=== PATIENT | male | born 1955 | race Caucasian/White ===

== ENCOUNTER 2020-10-15 15:28 | Inpatient (IN) ==
[2020-10-15 16:17] LABS: Basophils % 0.6 % (0.0-0.8); Eosinophils # 0.2 10*3/uL (0.0-0.87); Eosinophils % 3.7 % (0.00-10.9); Hematocrit 40.2 VOL% (42.0-52.0); Hemoglobin 14.1 GM/DL (14.0-18.0); Immature Granulocytes % 0.5 %; Immature Granulocytes Absolute 0.03 #; Lymphocytes # 1.3 10*3/uL (1.4-4.0); Lymphocytes % 19.4 % (21.2-54.2); Mean Corpuscular HGB Conc 35.1 GM/DL (32-36); Mean Corpuscular Volume 89.9 FL (87-102); Mean Platelet Volume 8.9 FL (9.6-12.0); Monocytes % 12.2 % (1.7-12.7); Neutrophils % 63.6 % (38.7-73.9); Platelet Count 264 T/CUMM (130-400); Red Blood Count 4.47 MC/CUMM (3.8-5.5); Red Cell Distribution Width 12.1 % (9.3-17.3); White Blood Count 6.6 T/CUMM (4-12)
[2020-10-15 16:31] LABS: Alanine Aminotransferase 18 U/L (16-61); Albumin 1.4 G/DL (3.4-5.0); Alkaline Phosphatase 81 U/L (45-117); Aspartate Amino Transferase 23 U/L (0-37); Bilirubin,Total < 0.39 MG/DL (0.2-1.0); Blood Urea Nitrogen 23 MG/DL (7-18); Calcium 8.1 MG/DL (8.5-10.1); Carbon Dioxide 29 MMOL/L (21-32); Estimated Glom Filtration Rate 61 ML/MIN; Glucose 94 MG/DL (74-106); Osmolality,Calculated 282.4 MOS/KG (273-304); Sodium 140 MMOL/L (136-145); Total Protein 4.9 G/DL (5.0-7.5)
[2020-10-15 16:34] LABS: Bilirubin,Urine Negative (Negative); Blood, Urine Negative (Negative); Glucose,Urine (UA) 50 mg/dL (Negative); Hyaline Casts,Urine 10 /LPF (0-3); Ketones,Urine Negative (Negative); Mucus,Urine Occasional /LPF (Occasional); Nitrite,Urine Negative (Negative); Protein,Urine >=500 MG/DL; RBC,Urine 2 /HPF (0-4); Squamous Epithelial Cell,Urine Occasional /HPF (0-10); Urine Appearance CLEAR (Clear); Urine Color Yellow (Yellow); Urine Specific Gravity 1.012 (1.001-1.035); Urine Urobilinogen < 2.0 EU/DL (0.2-1.0); WBC,Urine 1 /HPF (0-6)
[2020-10-15] MEDS ORDERED: ENOXAPARIN 100 MG/ML SYRINGE SUBCUT ONE (18:09)
[2020-10-15] MEDS ORDERED: diphenhydrAMINE CAP 25 MG CAPSULE PO PRN (18:13)
[2020-10-15] MEDS ORDERED: ONDANSETRON 4 MG/2 ML VIAL IV PRN (18:13)
[2020-10-15] MEDS ORDERED: DEXTROSE 50% 25 GM/50 ML VIAL IV PRN (18:13)
[2020-10-15] MEDS ORDERED: GLUCAGON 1 MG VIAL IM PRN (18:13)
[2020-10-15] MEDS ORDERED: BISACODYL 5 MG TABLET PO PRN (18:13)
[2020-10-15] MEDS ORDERED: NICOTINE 21 MG/24 HR PATCH TRANSDERM PRN (18:13)
[2020-10-15] MEDS ORDERED: ZALEPLON 5 MG CAPSULE PO PRN (18:13)
[2020-10-15] MEDS ORDERED: guaiFENesin/DM ER 600-30 MG TABLET PO PRN (18:13)
[2020-10-15] MEDS ORDERED: ALUMINUM/MAGNES/SIMETH MAX STR 30 ML UDCUP PO PRN (18:13)
[2020-10-15] MEDS ORDERED: hydrALAZINE 20 MG/1 ML VIAL IV PRN (18:13)
[2020-10-15] MEDS ORDERED: ENOXAPARIN 30 MG/0.3 ML SYRINGE ONE (18:23)
[2020-10-15] MEDS ORDERED: ENOXAPARIN 120 MG/0.8 ML SYRINGE SUBCUT ONE (18:23)
[2020-10-15 18:34] LABS: ABG Base Excess 5.2 MMOL/L (-2.5-2.5); ABG HCO3 29.1 MMOL/L (20-26); ABG Oxygen Saturation 96.8 % (95-100); ABG PH 7.437 (7.35-7.45); ABG PO2 86.9 MM HG (80-95); ABG TCO2 25.5 MMOL/L (23-27)
[2020-10-15] MEDS: ALBUTEROL/IPRATROPIUM 3 ML NEB RESP TX SCH (19:11)
[2020-10-15] MEDS: PRAZOSIN 1 MG CAPSULE PO SCH (21:05)
[2020-10-15] MEDS: FUROSEMIDE 40 MG TABLET PO SCH (21:06)
[2020-10-15] MEDS: traZODone 50 MG TABLET PO SCH (21:06)
[2020-10-15] MEDS: ATORVASTATIN 10 MG TABLET PO SCH (21:06)
[2020-10-15] MEDS: METOPROLOL TARTRATE 25 MG TABLET PO SCH (21:06)
[2020-10-15] MEDS: GABAPENTIN 400 MG CAPSULE PO SCH (21:06)
[2020-10-16] MEDS: ALBUTEROL/IPRATROPIUM 3 ML NEB RESP TX SCH ×4 (02:15→20:20)
[2020-10-16] MEDS ORDERED: ENOXAPARIN 150 MG/ML SYRINGE SUBCUT SCH (06:00)
[2020-10-16 06:13] LABS: Basophils % 0.5 % (0.0-0.8); Eosinophils # 0.3 10*3/uL (0.0-0.87); Eosinophils % 4.6 % (0.00-10.9); Hematocrit 36.8 VOL% (42.0-52.0); Hemoglobin 12.9 GM/DL (14.0-18.0); Immature Granulocytes % 0.2 %; Immature Granulocytes Absolute 0.01 #; Lymphocytes % 16.9 % (21.2-54.2); Mean Corpuscular HGB Conc 35.1 GM/DL (32-36); Mean Corpuscular Volume 90.6 FL (87-102); Mean Platelet Volume 9.4 FL (9.6-12.0); Monocytes % 13.3 % (1.7-12.7); Neutrophils % 64.5 % (38.7-73.9); Platelet Count 256 T/CUMM (130-400); Red Blood Count 4.06 MC/CUMM (3.8-5.5); Red Cell Distribution Width 12.1 % (9.3-17.3); White Blood Count 5.9 T/CUMM (4-12)
[2020-10-16 06:33] LABS: Alanine Aminotransferase 13 U/L (16-61); Albumin 1.3 G/DL (3.4-5.0); Alkaline Phosphatase 64 U/L (45-117); Aspartate Amino Transferase 18 U/L (0-37); Bilirubin,Total < 0.39 MG/DL (0.2-1.0); Blood Urea Nitrogen 23 MG/DL (7-18); Calcium 7.8 MG/DL (8.5-10.1); Carbon Dioxide 29 MMOL/L (21-32); Estimated Glom Filtration Rate 61 ML/MIN; Glucose 97 MG/DL (74-106); Osmolality,Calculated 284.3 MOS/KG (273-304); Potassium 3.6 MMOL/L (3.5-5.1); Sodium 141 MMOL/L (136-145); Total Protein 4.8 G/DL (5.0-7.5)
[2020-10-16] MEDS: FUROSEMIDE 40 MG TABLET PO SCH (08:45)
[2020-10-16] MEDS: METOPROLOL TARTRATE 25 MG TABLET PO SCH ×2 (08:45→21:04)
[2020-10-16] MEDS: POTASSIUM CHLORIDE 20 MEQ TABLET PO SCH (08:45)
[2020-10-16] MEDS: GABAPENTIN 400 MG CAPSULE PO SCH ×3 (08:45→21:04)
[2020-10-16] MEDS: PANTOPRAZOLE 40 MG TABLET PO SCH (08:46)
[2020-10-16] MEDS: TOPIRAMATE 25 MG TABLET PO SCH (08:46)
[2020-10-16] MEDS ORDERED: ENOXAPARIN 40 MG/0.4 ML SYRINGE SUBCUT SCH (09:00)
[2020-10-16] MEDS: ACETAMINOPHEN 325 MG TABLET PO PRN (12:46)
[2020-10-16] MEDS: FUROSEMIDE 40 MG/4 ML VIAL IV SCH (16:33)
[2020-10-16 17:40] LABS: Bilirubin,Urine Negative (Negative); Blood, Urine Negative (Negative); Glucose,Urine (UA) 150 mg/dL (Negative); Ketones,Urine Negative (Negative); Nitrite,Urine Negative (Negative); Protein,Urine >=500 MG/DL; RBC,Urine 1 /HPF (0-4); Squamous Epithelial Cell,Urine Occasional /HPF (0-10); Urine Appearance Slightly Hazy (Clear); Urine Color Yellow (Yellow); Urine Specific Gravity 1.026 (1.001-1.035); Urine Urobilinogen < 2.0 EU/DL (0.2-1.0); WBC,Urine 2 /HPF (0-6)
[2020-10-16] MEDS: PRAZOSIN 1 MG CAPSULE PO SCH (21:04)
[2020-10-16] MEDS: traZODone 50 MG TABLET PO SCH (21:04)
[2020-10-16] MEDS: ATORVASTATIN 10 MG TABLET PO SCH (21:04)
[2020-10-16] MEDS: metOLazone 5 MG TABLET PO SCH (21:10)
[2020-10-17] MEDS: ALBUTEROL/IPRATROPIUM 3 ML NEB RESP TX SCH ×4 (02:45→19:54)
[2020-10-17 07:30] LABS: Risk Ratio 4.15; VLDL CHOLESTEROL 29.2 MG/DL
[2020-10-17 07:50] LABS: Immunoglobulin A 149 MG/DL (70-400); Immunoglobulin G 346 MG/DL (700-1600); Immunoglobulin M < 21 MG/DL (40-230)
[2020-10-17 08:26] LABS: Hepatitis B Core IgM Quant 0.12 Index; Hepatitis B Surface Ag Quant < 0.10 Index; Hepatitis B Surface Ag Result Non-Reactive (NonReactive); Hepatitis C Virus Ab Quant 0.07 Index; Hepatitis C Virus Ab Result Non-Reactive (NonReactive); Prostate Specific Antigen Diag < 0.10 NG/ML (0-3.60)
[2020-10-17 08:27] LABS: Basophils % 0.8 % (0.0-0.8); Eosinophils # 0.3 10*3/uL (0.0-0.87); Eosinophils % 6.2 % (0.00-10.9); Hematocrit 38.7 VOL% (42.0-52.0); Immature Granulocytes % 0.4 %; Immature Granulocytes Absolute 0.02 #; Lymphocytes # 1.4 10*3/uL (1.4-4.0); Mean Corpuscular HGB Conc 33.6 GM/DL (32-36); Mean Platelet Volume 8.9 FL (9.6-12.0); Monocytes % 12.9 % (1.7-12.7); Neutrophils % 52.7 % (38.7-73.9); Platelet Count 253 T/CUMM (130-400); Red Blood Count 4.16 MC/CUMM (3.8-5.5); Red Cell Distribution Width 12.1 % (9.3-17.3); White Blood Count 5.2 T/CUMM (4-12)
[2020-10-17 08:37] LABS: PT Patient Result 11.1 SECS (9.8-11.9)
[2020-10-17] MEDS: GABAPENTIN 400 MG CAPSULE PO SCH ×3 (08:39→21:23)
[2020-10-17] MEDS: PANTOPRAZOLE 40 MG TABLET PO SCH (08:39)
[2020-10-17] MEDS: TOPIRAMATE 25 MG TABLET PO SCH (08:40)
[2020-10-17] MEDS: METOPROLOL TARTRATE 25 MG TABLET PO SCH ×2 (08:40→21:24)
[2020-10-17] MEDS: MULTIVITAMIN (CENTRUM) TABLET PO SCH (08:40)
[2020-10-17] MEDS: POTASSIUM CHLORIDE 20 MEQ TABLET PO SCH (08:40)
[2020-10-17] MEDS: metOLazone 5 MG TABLET PO SCH ×2 (08:40→21:24)
[2020-10-17] MEDS: FUROSEMIDE 40 MG/4 ML VIAL IV SCH ×2 (08:41→15:43)
[2020-10-17 08:59] LABS: Osmolality,Calculated 278.5 MOS/KG (273-304); Potassium 3.7 MMOL/L (3.5-5.1)
[2020-10-17] MEDS ORDERED: ENOXAPARIN 150 MG/ML SYRINGE SUBCUT SCH (09:00)
[2020-10-17 09:26] LABS: Immunoglobulin A (Chem) 149 MG/DL (70-400); Immunoglobulin G (Chem) 346 MG/DL (700-1600); Immunoglobulin M (Chem) < 21 MG/DL (40-230)
[2020-10-17 10:24] LABS: Total Protein 24 Hr Ur Result 17127 MG/24HR (0-149.1); Total Volume,Urine 1980 ML (400-2000)
[2020-10-17] MEDS: ALBUMIN 25% 25 GM in PREMIX 1 EACH IV SCH ×2 (13:14→21:23)
[2020-10-17 14:53] LABS: Anti SS-A Antibodies < 16 EU/ML
[2020-10-17 15:26] LABS: Protein/Creatinine Ratio,Urine 6.7 RATIO
[2020-10-17] MEDS: PRAZOSIN 1 MG CAPSULE PO SCH (21:23)
[2020-10-17] MEDS: APIXABAN 5 MG TABLET PO SCH (21:23)
[2020-10-17] MEDS: ATORVASTATIN 10 MG TABLET PO SCH (21:23)
[2020-10-17] MEDS: traZODone 50 MG TABLET PO SCH (21:24)
[2020-10-18] MEDS: ALBUTEROL/IPRATROPIUM 3 ML NEB RESP TX SCH ×4 (02:08→19:39)
[2020-10-18 05:39] LABS: Basophils % 0.6 % (0.0-0.8); Eosinophils # 0.3 10*3/uL (0.0-0.87); Eosinophils % 5.4 % (0.00-10.9); Hematocrit 36.2 VOL% (42.0-52.0); Hemoglobin 12.7 GM/DL (14.0-18.0); Immature Granulocytes % 0.4 %; Immature Granulocytes Absolute 0.02 #; Lymphocytes # 0.9 10*3/uL (1.4-4.0); Lymphocytes % 16.4 % (21.2-54.2); Mean Corpuscular HGB Conc 35.1 GM/DL (32-36); Mean Corpuscular Volume 90.7 FL (87-102); Mean Platelet Volume 9.1 FL (9.6-12.0); Monocytes % 14.8 % (1.7-12.7); Neutrophils % 62.4 % (38.7-73.9); Platelet Count 233 T/CUMM (130-400); Red Blood Count 3.99 MC/CUMM (3.8-5.5); Red Cell Distribution Width 11.9 % (9.3-17.3); White Blood Count 5.2 T/CUMM (4-12)
[2020-10-18 05:57] LABS: Calcium 8.4 MG/DL (8.5-10.1); Osmolality,Calculated 277.7 MOS/KG (273-304); Potassium 3.5 MMOL/L (3.5-5.1)
[2020-10-18] MEDS: POTASSIUM CHLORIDE 20 MEQ TABLET PO SCH (08:22)
[2020-10-18] MEDS: TOPIRAMATE 25 MG TABLET PO SCH (08:22)
[2020-10-18] MEDS: METOPROLOL TARTRATE 25 MG TABLET PO SCH ×2 (08:22→20:16)
[2020-10-18] MEDS: metOLazone 5 MG TABLET PO SCH ×2 (08:22→20:17)
[2020-10-18] MEDS: APIXABAN 5 MG TABLET PO SCH (08:22)
[2020-10-18] MEDS: GABAPENTIN 400 MG CAPSULE PO SCH ×3 (08:22→20:16)
[2020-10-18] MEDS: MULTIVITAMIN (CENTRUM) TABLET PO SCH (08:23)
[2020-10-18] MEDS: FUROSEMIDE 40 MG/4 ML VIAL IV SCH ×2 (08:23→16:31)
[2020-10-18] MEDS: ALBUMIN 25% 25 GM in PREMIX 1 EACH IV SCH ×2 (08:24→20:17)
[2020-10-18] MEDS: PANTOPRAZOLE 40 MG TABLET PO SCH (08:27)
[2020-10-18] MEDS: ENOXAPARIN 150 MG/ML SYRINGE SUBCUT SCH (10:08)
[2020-10-18] MEDS: MORPHINE 4 MG/1 ML VIAL IV PRN (14:54)
[2020-10-18] MEDS ORDERED: CYANOCOBALAMIN 1000 MCG/1 ML VIAL SUBCUT SCH (18:47)
[2020-10-18] MEDS: ATORVASTATIN 10 MG TABLET PO SCH (20:16)
[2020-10-18] MEDS: PRAZOSIN 1 MG CAPSULE PO SCH (20:16)
[2020-10-18] MEDS: traZODone 50 MG TABLET PO SCH (20:16)
[2020-10-18] MEDS: ACETAMINOPHEN 325 MG TABLET PO PRN (21:28)
[2020-10-19] MEDS: ALBUTEROL/IPRATROPIUM 3 ML NEB RESP TX SCH ×2 (00:23→07:49)
[2020-10-19 06:14] LABS: Basophils % 0.8 % (0.0-0.8); Eosinophils # 0.3 10*3/uL (0.0-0.87); Eosinophils % 5.5 % (0.00-10.9); Hemoglobin 11.9 GM/DL (14.0-18.0); Immature Granulocytes % 0.2 %; Immature Granulocytes Absolute 0.01 #; Lymphocytes # 0.9 10*3/uL (1.4-4.0); Lymphocytes % 17.4 % (21.2-54.2); Mean Corpuscular Volume 91.6 FL (87-102); Mean Platelet Volume 9.5 FL (9.6-12.0); Monocytes % 16.8 % (1.7-12.7); Neutrophils % 59.3 % (38.7-73.9); Platelet Count 225 T/CUMM (130-400); Red Blood Count 3.71 MC/CUMM (3.8-5.5); White Blood Count 4.9 T/CUMM (4-12)
[2020-10-19 06:34] LABS: Calcium 8.3 MG/DL (8.5-10.1); Osmolality,Calculated 276.8 MOS/KG (273-304); Potassium 3.4 MMOL/L (3.5-5.1)
[2020-10-19 08:19] LABS: Anisocytosis 1+; Eosinophils 8 % (0-10); Lymphocytes 14 % (20-55); Macrocytosis Slight; Platelet Estimate Normal; Segmented Neutrophils 59 % (50-85); Total Cells Counted 100
[2020-10-19] MEDS: MULTIVITAMIN (CENTRUM) TABLET PO SCH (08:36)
[2020-10-19] MEDS: METOPROLOL TARTRATE 25 MG TABLET PO SCH ×2 (08:36→20:37)
[2020-10-19] MEDS: PANTOPRAZOLE 40 MG TABLET PO SCH (08:36)
[2020-10-19] MEDS: TOPIRAMATE 25 MG TABLET PO SCH (08:36)
[2020-10-19] MEDS: metOLazone 5 MG TABLET PO SCH ×2 (08:36→20:38)
[2020-10-19] MEDS: GABAPENTIN 400 MG CAPSULE PO SCH ×3 (08:36→20:37)
[2020-10-19] MEDS: FUROSEMIDE 40 MG/4 ML VIAL IV SCH ×2 (08:37→16:26)
[2020-10-19] MEDS: POTASSIUM CHLORIDE 20 MEQ TABLET PO SCH ×2 (08:37→20:37)
[2020-10-19] MEDS: ENOXAPARIN 150 MG/ML SYRINGE SUBCUT SCH (08:37)
[2020-10-19] MEDS: ALBUMIN 25% 25 GM in PREMIX 1 EACH IV SCH ×2 (08:46→20:38)
[2020-10-19] MEDS: MORPHINE 4 MG/1 ML VIAL IV PRN (12:24)
[2020-10-19] MEDS: ACETAMINOPHEN 325 MG TABLET PO PRN ×2 (13:04→21:49)
[2020-10-19 13:46] LABS: Antinuclear Ab, S 0.2 U
[2020-10-19] MEDS ORDERED: ERGOCALCIFEROL 50,000 UNIT CAPSULE PO SCH (18:47)
[2020-10-19] MEDS: ATORVASTATIN 10 MG TABLET PO SCH (20:37)
[2020-10-19] MEDS: PRAZOSIN 1 MG CAPSULE PO SCH (20:37)
[2020-10-19] MEDS: traZODone 50 MG TABLET PO SCH (20:38)
[2020-10-20 05:34] LABS: Basophils # 0.1 10*3/uL (0.0-0.2); Eosinophils # 0.3 10*3/uL (0.0-0.87); Eosinophils % 5.6 % (0.00-10.9); Hematocrit 36.4 VOL% (42.0-52.0); Hemoglobin 12.5 GM/DL (14.0-18.0); Immature Granulocytes % 0.6 %; Immature Granulocytes Absolute 0.03 #; Lymphocytes # 1.1 10*3/uL (1.4-4.0); Lymphocytes % 21.1 % (21.2-54.2); Mean Corpuscular HGB Conc 34.3 GM/DL (32-36); Mean Corpuscular Volume 91.5 FL (87-102); Mean Platelet Volume 9.8 FL (9.6-12.0); Monocytes % 14.9 % (1.7-12.7); Neutrophils % 56.8 % (38.7-73.9); Platelet Count 260 T/CUMM (130-400); Red Blood Count 3.98 MC/CUMM (3.8-5.5)
[2020-10-20 05:54] LABS: Calcium 8.8 MG/DL (8.5-10.1); Osmolality,Calculated 278.7 MOS/KG (273-304); Potassium 3.8 MMOL/L (3.5-5.1)
[2020-10-20 07:16] LABS: 24 Hr Protein (Bench) 17127 MG/24HR (0-149.1)
[2020-10-20 08:29] LABS: Albumin (UPE) Rel % 67.9 %; Alpha 1 (UPE) Rel % 8.9 %; Alpha 2 (UPE) Rel % 6.7 %; Beta (UPE) Rel % 8.2 %; Gamma (UPE) Rel % 8.3 %
[2020-10-20] MEDS: FUROSEMIDE 40 MG/4 ML VIAL IV SCH ×2 (09:18→17:10)
[2020-10-20] MEDS: ALBUMIN 25% 25 GM in PREMIX 1 EACH IV SCH (10:58)
[2020-10-20 12:01] LABS: Protein S Ag (Free) 120 % (65 - 160)
[2020-10-20] MEDS: METOPROLOL TARTRATE 25 MG TABLET PO SCH ×2 (12:21→22:11)
[2020-10-20] MEDS: MORPHINE 4 MG/1 ML VIAL IV PRN (12:51)
[2020-10-20] MEDS ORDERED: DIAZEPAM 5 MG TABLET PO ONE (14:46)
[2020-10-20] MEDS ORDERED: DIAZEPAM 5 MG TABLET ONE (14:48)
[2020-10-20] MEDS: POTASSIUM CHLORIDE 20 MEQ TABLET PO SCH ×2 (16:51→22:11)
[2020-10-20] MEDS: MULTIVITAMIN (CENTRUM) TABLET PO SCH (16:52)
[2020-10-20] MEDS: metOLazone 5 MG TABLET PO SCH ×2 (16:52→22:11)
[2020-10-20] MEDS: GABAPENTIN 400 MG CAPSULE PO SCH ×3 (16:52→22:11)
[2020-10-20] MEDS: TOPIRAMATE 25 MG TABLET PO SCH (16:53)
[2020-10-20] MEDS: PANTOPRAZOLE 40 MG TABLET PO SCH (16:53)
[2020-10-20] MEDS: ACETAMINOPHEN 325 MG TABLET PO PRN (17:08)
[2020-10-20 18:16] LABS: Myeloperoxidase Antibodies SEE COMMENTS
[2020-10-20 19:41] LABS: Phospholipid Ab IgM, S < 9.4 MPL
[2020-10-20] MEDS: ATORVASTATIN 10 MG TABLET PO SCH (22:10)
[2020-10-20] MEDS: traZODone 50 MG TABLET PO SCH (22:11)
[2020-10-20] MEDS: PRAZOSIN 1 MG CAPSULE PO SCH (22:12)
[2020-10-21] MEDS: FUROSEMIDE 40 MG/4 ML VIAL IV SCH ×2 (09:20→15:45)
[2020-10-21] MEDS: POTASSIUM CHLORIDE 20 MEQ TABLET PO SCH ×2 (09:24→21:07)
[2020-10-21] MEDS: APIXABAN 5 MG TABLET PO SCH ×2 (09:24→21:06)
[2020-10-21] MEDS: MULTIVITAMIN (CENTRUM) TABLET PO SCH (09:24)
[2020-10-21] MEDS: metOLazone 5 MG TABLET PO SCH ×2 (09:24→21:08)
[2020-10-21] MEDS: TOPIRAMATE 25 MG TABLET PO SCH (09:24)
[2020-10-21] MEDS: METOPROLOL TARTRATE 25 MG TABLET PO SCH ×2 (09:25→21:07)
[2020-10-21] MEDS: PANTOPRAZOLE 40 MG TABLET PO SCH (09:25)
[2020-10-21] MEDS: GABAPENTIN 400 MG CAPSULE PO SCH ×3 (09:25→21:18)
[2020-10-21 12:22] LABS: Basophils % 0.7 % (0.0-0.8); Eosinophils # 0.2 10*3/uL (0.0-0.87); Eosinophils % 3.7 % (0.00-10.9); Hematocrit 38.5 VOL% (42.0-52.0); Hemoglobin 12.8 GM/DL (14.0-18.0); Immature Granulocytes % 0.4 %; Immature Granulocytes Absolute 0.02 #; Lymphocytes % 18.2 % (21.2-54.2); Mean Corpuscular HGB Conc 33.2 GM/DL (32-36); Mean Corpuscular Volume 93.7 FL (87-102); Mean Platelet Volume 9.4 FL (9.6-12.0); Monocytes % 14.3 % (1.7-12.7); Neutrophils % 62.7 % (38.7-73.9); Platelet Count 261 T/CUMM (130-400); Red Blood Count 4.11 MC/CUMM (3.8-5.5); Red Cell Distribution Width 12.2 % (9.3-17.3); White Blood Count 5.4 T/CUMM (4-12)
[2020-10-21 12:32] LABS: Double Stranded DNA Antibodies < 25.0 IU/ML
[2020-10-21 12:40] LABS: Calcium 8.2 MG/DL (8.5-10.1); Osmolality,Calculated 279.7 MOS/KG (273-304)
[2020-10-21] MEDS: traZODone 50 MG TABLET PO SCH (21:06)
[2020-10-21] MEDS: ATORVASTATIN 10 MG TABLET PO SCH (21:07)
[2020-10-21] MEDS: ACETAMINOPHEN 325 MG TABLET PO PRN (21:09)
[2020-10-21] MEDS: PRAZOSIN 1 MG CAPSULE PO SCH (21:18)
[2020-10-22 05:59] LABS: Basophils % 0.8 % (0.0-0.8); Eosinophils # 0.2 10*3/uL (0.0-0.87); Eosinophils % 4.3 % (0.00-10.9); Hematocrit 38.5 VOL% (42.0-52.0); Hemoglobin 12.9 GM/DL (14.0-18.0); Immature Granulocytes % 0.4 %; Immature Granulocytes Absolute 0.02 #; Lymphocytes # 1.1 10*3/uL (1.4-4.0); Lymphocytes % 22.1 % (21.2-54.2); Mean Corpuscular HGB Conc 33.5 GM/DL (32-36); Mean Corpuscular Volume 93.4 FL (87-102); Mean Platelet Volume 9.8 FL (9.6-12.0); Monocytes % 13.2 % (1.7-12.7); Neutrophils % 59.2 % (38.7-73.9); Platelet Count 263 T/CUMM (130-400); Red Blood Count 4.12 MC/CUMM (3.8-5.5); Red Cell Distribution Width 12.1 % (9.3-17.3); White Blood Count 5.2 T/CUMM (4-12)
[2020-10-22 06:36] LABS: Albumin 2.3 G/DL (3.4-5.0); Bilirubin,Total 0.8 MG/DL (0.2-1.0); Calcium 8.2 MG/DL (8.5-10.1); Osmolality,Calculated 282.7 MOS/KG (273-304); Potassium 3.6 MMOL/L (3.5-5.1); Total Protein 5.7 G/DL (5.0-7.5)
[2020-10-22] MEDS: POTASSIUM CHLORIDE 20 MEQ TABLET PO SCH ×2 (09:14→20:56)
[2020-10-22] MEDS: metOLazone 5 MG TABLET PO SCH (09:14)
[2020-10-22] MEDS: APIXABAN 5 MG TABLET PO SCH ×2 (09:15→20:56)
[2020-10-22] MEDS: METOPROLOL TARTRATE 25 MG TABLET PO SCH ×2 (09:15→20:56)
[2020-10-22] MEDS: MULTIVITAMIN (CENTRUM) TABLET PO SCH (09:15)
[2020-10-22] MEDS: TOPIRAMATE 25 MG TABLET PO SCH (09:15)
[2020-10-22] MEDS: FUROSEMIDE 40 MG/4 ML VIAL IV SCH ×2 (09:16→16:41)
[2020-10-22] MEDS: PANTOPRAZOLE 40 MG TABLET PO SCH (10:13)
[2020-10-22] MEDS: GABAPENTIN 400 MG CAPSULE PO SCH ×3 (10:13→20:56)
[2020-10-22] MEDS: PRAZOSIN 1 MG CAPSULE PO SCH (20:55)
[2020-10-22] MEDS: ATORVASTATIN 10 MG TABLET PO SCH (20:56)
[2020-10-22] MEDS: traZODone 50 MG TABLET PO SCH (20:56)
[2020-10-23 06:12] LABS: Bilirubin,Total 0.8 MG/DL (0.2-1.0); Osmolality,Calculated 283.5 MOS/KG (273-304); Potassium 3.7 MMOL/L (3.5-5.1); Total Protein 5.2 G/DL (5.0-7.5)
[2020-10-23] MEDS: APIXABAN 5 MG TABLET PO SCH (08:29)
[2020-10-23] MEDS: GABAPENTIN 400 MG CAPSULE PO SCH (08:30)
[2020-10-23] MEDS: TOPIRAMATE 25 MG TABLET PO SCH (08:30)
[2020-10-23] MEDS: PANTOPRAZOLE 40 MG TABLET PO SCH (08:30)
[2020-10-23] MEDS: MULTIVITAMIN (CENTRUM) TABLET PO SCH (08:30)
[2020-10-23] MEDS: POTASSIUM CHLORIDE 20 MEQ TABLET PO SCH (08:30)
[2020-10-23] MEDS: METOPROLOL TARTRATE 25 MG TABLET PO SCH (08:31)
[2020-10-23] MEDS: ACETAMINOPHEN 325 MG TABLET PO PRN (08:31)
[2020-10-23] MEDS: FUROSEMIDE 40 MG/4 ML VIAL IV SCH (08:32)
[2020-10-23] MEDS ORDERED: metOLazone 5 MG TABLET PO SCH (09:00)
[2020-10-23 09:11] VITALS: BP 151/83
[2020-10-23] MEDS ORDERED: FUROSEMIDE 40 MG TABLET PO SCH (16:00)
== END 2020-10-23 11:08 | disposition home or self-care (01) | DRG 698 ==
LOC: N.ED 15:28 → N.EDINP 18:14 → SUATTDRO 18:14 → N.TELEN 19:57
PROVIDERS: ADMIT Internal Medicine; ATTEND Internal Medicine